=== PATIENT | female | born 1955 | race Caucasian/White ===

== ENCOUNTER 2016-11-07 05:51 | Day surgery (SDC) | payer OTHER ==
[~2016-11-07] VITALS: Ht 170.2 cm; Wt 72.6 kg
[~2016-11-07 05:51] MED LIST: BONIVA150 M1 PO; CALTRATE 600+D1 CHW PO; CHONDROITIN PO; ESTROGEN TOP; FIBER WELL PO; GLUCOSAMINE1 TA1 PO; METOPROL TAR25 M1 PO; MULT VITAMI1 PO; PAPAYA ENZY PO; VITAMIN B-122500 MCG SL; ZYRTEC10 M3 PO
[2016-11-07 07:47] VITALS: BP 126/67
== END 2016-11-07 08:00 | disposition home or self-care (01) | DRG 951 ==
LOC: ENDO 05:51
PROVIDERS: ATTEND Surgery
PROC: 0DJD8ZZ Inspection of Lower Intestinal Tract, Via Natural or Artificial Opening Endoscopic (ICD-10-PCS; principal; 2016-11-07)
DX: Z12.11 Encounter for screening for malignant neoplasm of colon (principal); I47.1 Supraventricular tachycardia; I10 Essential (primary) hypertension; K57.30 Diverticulosis of large intestine without perforation or abscess without bleeding

== ENCOUNTER 2022-02-28 06:50 | Day surgery (SDC) | payer MEDICARE ==
[~2022-02-28] VITALS: Ht 170.2 cm; Wt 74.8 kg
[~2022-02-28 06:50] MED LIST changes: +D325 MCG PO; +OMEPRAZOLE DR20 MG PO; +SLOW-MAG PO; +VIT C/ACEROL500 M1 PO; +ZINC50 M1 PO
[2022-02-28 11:30] VITALS: BP 147/71
== END 2022-02-28 11:00 | disposition home or self-care (01) ==
LOC: ENDO 06:50
PROVIDERS: ATTEND Surgery
PROC: 0DJD8ZZ Inspection of Lower Intestinal Tract, Via Natural or Artificial Opening Endoscopic (ICD-10-PCS; principal; 2022-02-28)
DX: Z12.11 Encounter for screening for malignant neoplasm of colon (principal)